=== PATIENT | female | born 1970 | race Two or more races ===

== ENCOUNTER 2020-04-06 05:07 | Day surgery (SDC) | payer BC ==
[2020-04-03 10:18] VITALS: BMI 33.2
[2020-04-06] MEDS ORDERED: ACETAMINOPHEN 325 MG TABLET (FP) PO PRN (07:38)
[2020-04-06] MEDS ORDERED: IBUPROFEN 400 MG TABLET (FP) PO PRN (07:38)
--- NOTE | 2020-04-06 07:38 | HP ---
History & Physical Update - History History: No Change - Physical Physical: No Change - Assessment Assessment: No Change - Plan Plan: No Change (No change in HP)
[2020-04-06] MEDS ORDERED: MIDAZOLAM HCL 2 MG/2 ML SINGLE DOSE VIAL ONE (09:38)
[2020-04-06] MEDS ORDERED: DEXAMETHASONE SOD PHOSPHATE 4 MG/1 ML VIAL ONE (09:39)
[2020-04-06] MEDS ORDERED: PROPOFOL 20 ML ONE (09:50)
--- NOTE | 2020-04-06 10:02 | OP ---
Operative Note - Note: Operative Date: 04/06/20 Pre-Operative Diagnosis: HPV. Dysplasia Operation: LEEP COne Post-Operative Diagnosis: Same as Pre-op Surgeon: Tran Mcdonough Anesthesia: General Estimated Blood Loss (mls): 1
[2020-04-06] MEDS ORDERED: ONDANSETRON 4 MG/2 ML VIAL IVPUSH PRN (11:10)
[2020-04-06] MEDS ORDERED: oxyCODONE HCL 5 MG TABLET PO PRN ×2 (11:10)
[2020-04-06] MEDS ORDERED: LACTATED RINGERS SOLUTION 1,000 ML IV SCH (11:15)
[2020-04-06 11:56] VITALS: BP 119/77; PULSE 66; TEMP 97.6
--- NOTE | 2020-04-13 09:56 | PATH ---
Surgical Pathology Report Patient Name: JUNIOR CASTELLANO [facility]. Rec. #: [id number] /Age/Gender: 1970 (Age: 49) / F Account: [id number] Location: [facility] SURGICAL Taken: 04/06/2020 Received: 04/06/2020 Reported: 04/13/2020 Physicians: Tran Mcdonough M.D. Specimen(s) Received A: EXOCERVICAL BIOPSY B: ENDOCERVICAL BIOPSY Clinical History HPV, cervical dysplasia Final Diagnosis A. EXOCERVICAL, LOOP ELECTROSURGICAL EXCISION PROCEDURE (LEEP)/ BIOPSY: CERVICAL SQUAMOUS MUCOSA WITHOUT SIGNIFICANT PATHOLOGIC FINDINGS. NO DYSPLASIA IDENTIFIED. TRANSFORMATION ZONE: NOT IDENTIFIED. SEE COMMENT. B. ENDOCERVICAL, LOOP ELECTROSURGICAL EXCISION PROCEDURE (LEEP)/BIOPSY: CERVICAL SQUAMOUS AND ENDOCERVICAL MUCOSA WITH FOCAL ACUTE INFLAMMATION AND SQUAMOUS METAPLASIA NO DYSPLASIA IDENTIFIED. TRANSFORMATION ZONE: PRESENT. SEE COMMENT. Comment: Immunohistochemical stains performed at [place], [place] ([id number]) and interpreted at [facility] show p16 is negative. Ki-67 highlights basal and parabasal nuclei. Positive and negative controls (internal if applicable) show appropriate results. Electronically Signed Terrie Frausto M.D. Gross Description A. Received in formalin labeled "exocervix biopsy," is a 2 cm in diameter moses, annular, unoriented portion of soft tissue with a central os, consistent with a cervical LEEP cone biopsy. The specimen is partially surfaced by a moses-pink mucosa. The specimen is inked blue, sectioned and entirely and sequentially submitted in 4 cassettes. B. Received in formalin labeled "endocervical biopsy," is a 1.8 cm in diameter moses, annular, unoriented portion of soft tissue with a central os. There is an additional 2.0 x 1.2 x 0.2 cm portion of soft tissue separately received within the same container. The specimens are inked blue and sectioned. The specimen is entirely submitted in 6 cassettes as follows: [id number] submitted annular portion of tissue; 7-6-[id number] received portion of tissue. DL/04/06/2020 saudi/04/06/2020
--- NOTE | 2020-04-14 10:12 | OP ---
DATE OF OPERATION: 04/06/2020 PREOPERATIVE DIAGNOSES: Human papilloma virus, cervical dysplasia. OPERATION: Loop electrosurgical excision procedure cone. POSTOPERATIVE DIAGNOSES: Human papilloma virus, cervical dysplasia. SURGEON: Tran Mcdonough MD ANESTHESIA: General. PROCEDURE: Patient was taken to the operating room, placed in dorsal lithotomy position, prepped and draped in the usual sterile fashion. Timeout was performed in accordance with hospital regulations. Speculum was placed in the vagina. Cervix then painted with Lugol's. A large LEEP cone was then done on the ectocervix. Endocervix submitted. The was then used to coagulate the edges of the cervix, and Monsel's was then placed on the cervix. All instruments then removed. Hemostasis was achieved. Patient tolerated the procedure well. Estimated blood loss: 1 mL. TRAN MCDONOUGH M.D. [id number]
== END 2020-04-06 12:33 | disposition home or self-care (01) ==
LOC: JASU-SURG 05:07
PROVIDERS: ATTEND Obstetrics & Gynecology
PROC: 0UBC7ZX Excision of Cervix, Via Natural or Artificial Opening, Diagnostic (ICD-10-PCS; principal; 2020-04-06 09:00)
DX: N87.9 Dysplasia of cervix uteri, unspecified (principal); R87.820 Cervical low risk human papillomavirus (HPV) DNA test positive
CPT/HCPCS: 86850; 86900; 86901; 86922; 88305-TC; 94760